=== PATIENT | male | born 1995 | race Caucasian/White ===

== ENCOUNTER 2022-05-08 04:26 | Emergency (ER) | payer OTHER ==
[~2022-05-08] VITALS: Ht 170.2 cm; Wt 81.8 kg
[2022-05-08] MEDS ORDERED: ALBUTEROL 90 MCG/ACT 8GM HFA INHALER INH ONE (07:35)
[2022-05-08] MEDS ORDERED: predniSONE 20 MG TAB PO ONE (07:35)
[2022-05-08] MEDS ORDERED: ALBU6.7H6 INH (08:52)
[2022-05-08 09:00] VITALS: BP 126/65
== END 2022-05-08 09:08 | disposition home or self-care (01) ==
LOC: M ED 04:26
DX: J06.9 Acute upper respiratory infection, unspecified (principal); R06.2 Wheezing
CPT/HCPCS: 94640; 99283; J7512

== ENCOUNTER 2023-04-23 00:28 | Emergency (ER) | payer OTHER, SELFPAY ==
[~2023-04-23] VITALS: Ht 170.2 cm; Wt 79.5 kg
[2023-04-23 00:28] VITALS: BP 131/62; TEMP 97.5; O2SAT 94
[~2023-04-23 00:28] MED LIST: ALBU6.7H6 INH
[2023-04-23] MEDS ORDERED: DIPH-435 PO (00:34)
[2023-04-23] MEDS ORDERED: CETI10CH PO (00:34)
[2023-04-23 01:43] LABS: RSV AMPLIFICATION NEGATIVE (NEGATIVE)
== END 2023-04-23 02:34 | disposition left against medical advice (07) ==
LOC: M ED 00:28
DX: Z53.21 Procedure and treatment not carried out due to patient leaving prior to being seen by health care provider (principal)